=== PATIENT | female | born 1945 | race Caucasian/White ===

== ENCOUNTER 2017-10-05 08:59 | Outpatient (CLI) | payer OTHER | END 2017-10-05 09:11 | disposition home or self-care (01) | LOC: LAB 08:59 | DX: C50.412 Malignant neoplasm of upper-outer quadrant of left female breast (principal); D63.1 Anemia in chronic kidney disease; D53.8 Other specified nutritional anemias; D51.3 Other dietary vitamin B12 deficiency anemia; D63.8 Anemia in other chronic diseases classified elsewhere; D63.0 Anemia in neoplastic disease; D05.12 Intraductal carcinoma in situ of left breast; I10 Essential (primary) hypertension; E08.21 Diabetes mellitus due to underlying condition with diabetic nephropathy; E08.65 Diabetes mellitus due to underlying condition with hyperglycemia; E55.9 Vitamin D deficiency, unspecified; D50.8 Other iron deficiency anemias; D51.8 Other vitamin B12 deficiency anemias; R97.0 Elevated carcinoembryonic antigen [CEA]; R97.8 Other abnormal tumor markers; I73.89 Other specified peripheral vascular diseases ==

== ENCOUNTER 2017-10-27 12:31 | Outpatient (CLI) | payer OTHER | END 2017-10-27 12:37 | disposition home or self-care (01) | LOC: SONOGRAMA 12:31 | DX: N60.11 Diffuse cystic mastopathy of right breast (principal); N60.12 Diffuse cystic mastopathy of left breast; N63.41 Unspecified lump in right breast, subareolar ==

== ENCOUNTER 2018-03-15 10:12 | Outpatient (CLI) | payer OTHER | END 2018-03-15 10:14 | disposition home or self-care (01) | LOC: LAB 10:12 | DX: C50.412 Malignant neoplasm of upper-outer quadrant of left female breast (principal); D24.1 Benign neoplasm of right breast; D63.1 Anemia in chronic kidney disease; N18.3 Chronic kidney disease, stage 3 (moderate); D53.8 Other specified nutritional anemias; D51.3 Other dietary vitamin B12 deficiency anemia; D63.8 Anemia in other chronic diseases classified elsewhere; D63.0 Anemia in neoplastic disease; I10 Essential (primary) hypertension; E08.21 Diabetes mellitus due to underlying condition with diabetic nephropathy; I73.89 Other specified peripheral vascular diseases; E08.65 Diabetes mellitus due to underlying condition with hyperglycemia; E55.9 Vitamin D deficiency, unspecified; D50.8 Other iron deficiency anemias; D51.8 Other vitamin B12 deficiency anemias; R97.0 Elevated carcinoembryonic antigen [CEA]; R97.8 Other abnormal tumor markers ==

== ENCOUNTER 2018-08-23 06:36 | Outpatient (CLI) | payer OTHER | END 2018-08-23 06:40 | disposition home or self-care (01) | LOC: LAB 06:36 | DX: C50.412 Malignant neoplasm of upper-outer quadrant of left female breast (principal); D24.1 Benign neoplasm of right breast; D63.1 Anemia in chronic kidney disease; N18.3 Chronic kidney disease, stage 3 (moderate); D53.8 Other specified nutritional anemias; D51.3 Other dietary vitamin B12 deficiency anemia; D63.8 Anemia in other chronic diseases classified elsewhere; D63.0 Anemia in neoplastic disease; I10 Essential (primary) hypertension; E08.21 Diabetes mellitus due to underlying condition with diabetic nephropathy; I73.89 Other specified peripheral vascular diseases; E08.65 Diabetes mellitus due to underlying condition with hyperglycemia; E55.9 Vitamin D deficiency, unspecified; D50.8 Other iron deficiency anemias; D51.8 Other vitamin B12 deficiency anemias; R97.0 Elevated carcinoembryonic antigen [CEA]; R97.8 Other abnormal tumor markers ==

== ENCOUNTER 2018-12-26 09:33 | Outpatient (CLI) | payer OTHER | END 2018-12-26 09:40 | disposition home or self-care (01) | LOC: LAB 09:33 | DX: E03.8 Other specified hypothyroidism (principal); C50.412 Malignant neoplasm of upper-outer quadrant of left female breast; D24.1 Benign neoplasm of right breast; D63.1 Anemia in chronic kidney disease; N18.3 Chronic kidney disease, stage 3 (moderate); D53.8 Other specified nutritional anemias; D51.3 Other dietary vitamin B12 deficiency anemia; D63.8 Anemia in other chronic diseases classified elsewhere; D63.0 Anemia in neoplastic disease; I10 Essential (primary) hypertension; E08.21 Diabetes mellitus due to underlying condition with diabetic nephropathy; I73.89 Other specified peripheral vascular diseases; E08.65 Diabetes mellitus due to underlying condition with hyperglycemia; E55.9 Vitamin D deficiency, unspecified; D50.8 Other iron deficiency anemias; D51.8 Other vitamin B12 deficiency anemias; K90.89 Other intestinal malabsorption; R97.0 Elevated carcinoembryonic antigen [CEA]; R97.8 Other abnormal tumor markers ==

== ENCOUNTER → 2019-05-29 08:28 | Outpatient (CLI) | payer OTHER | END | disposition home or self-care (01) | LOC: LAB 08:28 | DX: D24.1 Benign neoplasm of right breast (principal); C50.412 Malignant neoplasm of upper-outer quadrant of left female breast; D63.1 Anemia in chronic kidney disease; N18.3 Chronic kidney disease, stage 3 (moderate); D53.8 Other specified nutritional anemias; D51.3 Other dietary vitamin B12 deficiency anemia; D63.8 Anemia in other chronic diseases classified elsewhere; D63.0 Anemia in neoplastic disease; E08.21 Diabetes mellitus due to underlying condition with diabetic nephropathy; I73.89 Other specified peripheral vascular diseases; E08.65 Diabetes mellitus due to underlying condition with hyperglycemia; E55.9 Vitamin D deficiency, unspecified; D50.8 Other iron deficiency anemias; D51.8 Other vitamin B12 deficiency anemias; R97.0 Elevated carcinoembryonic antigen [CEA]; R97.8 Other abnormal tumor markers; E03.8 Other specified hypothyroidism ==

== ENCOUNTER 2020-05-29 09:13 | Outpatient (CLI) | payer OTHER | END 2020-05-29 09:20 | disposition home or self-care (01) | LOC: LAB 09:13 | PROVIDERS: ATTEND Internal Medicine Hematology & Oncology | DX: D50.8 Other iron deficiency anemias (principal); I10 Essential (primary) hypertension; E78.2 Mixed hyperlipidemia; C50.412 Malignant neoplasm of upper-outer quadrant of left female breast; D24.1 Benign neoplasm of right breast; D63.1 Anemia in chronic kidney disease; D53.8 Other specified nutritional anemias; D51.3 Other dietary vitamin B12 deficiency anemia; D63.8 Anemia in other chronic diseases classified elsewhere; D63.0 Anemia in neoplastic disease; E08.21 Diabetes mellitus due to underlying condition with diabetic nephropathy; I73.89 Other specified peripheral vascular diseases; E08.65 Diabetes mellitus due to underlying condition with hyperglycemia; E55.9 Vitamin D deficiency, unspecified; D51.8 Other vitamin B12 deficiency anemias; R97.0 Elevated carcinoembryonic antigen [CEA]; R97.8 Other abnormal tumor markers ==

== ENCOUNTER 2020-10-30 07:33 | Outpatient (CLI) | payer OTHER | END 2020-10-30 07:39 | disposition home or self-care (01) | LOC: LAB 07:33 | PROVIDERS: ATTEND Internal Medicine Hematology & Oncology | DX: C50.412 Malignant neoplasm of upper-outer quadrant of left female breast (principal); D24.1 Benign neoplasm of right breast; D63.1 Anemia in chronic kidney disease; N18.31 Chronic kidney disease, stage 3a; D53.8 Other specified nutritional anemias; D51.3 Other dietary vitamin B12 deficiency anemia; D63.8 Anemia in other chronic diseases classified elsewhere; D63.0 Anemia in neoplastic disease; I10 Essential (primary) hypertension; E08.21 Diabetes mellitus due to underlying condition with diabetic nephropathy; I73.89 Other specified peripheral vascular diseases; E08.65 Diabetes mellitus due to underlying condition with hyperglycemia; E55.9 Vitamin D deficiency, unspecified; D50.8 Other iron deficiency anemias; R79.89 Other specified abnormal findings of blood chemistry; R74.02 Elevation of levels of lactic acid dehydrogenase [LDH]; K76.89 Other specified diseases of liver; D51.8 Other vitamin B12 deficiency anemias; R97.8 Other abnormal tumor markers; R97.0 Elevated carcinoembryonic antigen [CEA] ==

== ENCOUNTER → 2021-02-11 | Outpatient (CLI) | payer OTHER | END | disposition home or self-care (01) | LOC: LAB 08:32 | PROVIDERS: ATTEND Internal Medicine Hematology & Oncology | DX: C50.412 Malignant neoplasm of upper-outer quadrant of left female breast (principal); D24.1 Benign neoplasm of right breast; D63.1 Anemia in chronic kidney disease; D53.8 Other specified nutritional anemias; D51.3 Other dietary vitamin B12 deficiency anemia; D63.8 Anemia in other chronic diseases classified elsewhere; D63.0 Anemia in neoplastic disease; I10 Essential (primary) hypertension; E08.21 Diabetes mellitus due to underlying condition with diabetic nephropathy; I73.89 Other specified peripheral vascular diseases; E08.65 Diabetes mellitus due to underlying condition with hyperglycemia; E55.9 Vitamin D deficiency, unspecified ==

== ENCOUNTER 2021-05-14 08:37 | Outpatient (CLI) | payer OTHER | END 2021-05-14 08:41 | disposition home or self-care (01) | LOC: LAB 08:37 | PROVIDERS: ATTEND Internal Medicine Hematology & Oncology | DX: I10 Essential (primary) hypertension (principal); D50.8 Other iron deficiency anemias; R79.89 Other specified abnormal findings of blood chemistry; R74.02 Elevation of levels of lactic acid dehydrogenase [LDH]; K76.89 Other specified diseases of liver; D63.1 Anemia in chronic kidney disease; C50.919 Malignant neoplasm of unspecified site of unspecified female breast; R97.8 Other abnormal tumor markers; R97.0 Elevated carcinoembryonic antigen [CEA]; C50.412 Malignant neoplasm of upper-outer quadrant of left female breast; D24.1 Benign neoplasm of right breast; N18.9 Chronic kidney disease, unspecified; D53.8 Other specified nutritional anemias; D51.3 Other dietary vitamin B12 deficiency anemia; D63.8 Anemia in other chronic diseases classified elsewhere; E08.21 Diabetes mellitus due to underlying condition with diabetic nephropathy; I73.89 Other specified peripheral vascular diseases; E08.65 Diabetes mellitus due to underlying condition with hyperglycemia; E55.9 Vitamin D deficiency, unspecified ==

== ENCOUNTER 2021-09-10 08:33 | Outpatient (CLI) | payer OTHER | END 2021-09-10 08:41 | disposition home or self-care (01) | LOC: LAB 08:33 | PROVIDERS: ATTEND Internal Medicine Hematology & Oncology | DX: D50.8 Other iron deficiency anemias (principal); R79.9 Abnormal finding of blood chemistry, unspecified; R74.02 Elevation of levels of lactic acid dehydrogenase [LDH]; K76.89 Other specified diseases of liver; D63.1 Anemia in chronic kidney disease; C50.919 Malignant neoplasm of unspecified site of unspecified female breast; R97.8 Other abnormal tumor markers; R97.0 Elevated carcinoembryonic antigen [CEA]; C50.412 Malignant neoplasm of upper-outer quadrant of left female breast; D24.1 Benign neoplasm of right breast; D53.9 Nutritional anemia, unspecified; D51.3 Other dietary vitamin B12 deficiency anemia; D63.8 Anemia in other chronic diseases classified elsewhere; D63.0 Anemia in neoplastic disease; I73.9 Peripheral vascular disease, unspecified; E08.65 Diabetes mellitus due to underlying condition with hyperglycemia; E55.9 Vitamin D deficiency, unspecified; N18.30 Chronic kidney disease, stage 3 unspecified; E08.21 Diabetes mellitus due to underlying condition with diabetic nephropathy ==

== ENCOUNTER 2022-09-05 08:09 | Outpatient (CLI) | payer OTHER | END 2022-09-05 08:10 | disposition home or self-care (01) | LOC: LAB 08:09 | PROVIDERS: ATTEND Internal Medicine Hematology & Oncology | DX: D50.8 Other iron deficiency anemias (principal); R79.9 Abnormal finding of blood chemistry, unspecified; I10 Essential (primary) hypertension; R74.02 Elevation of levels of lactic acid dehydrogenase [LDH]; K76.89 Other specified diseases of liver; D51.8 Other vitamin B12 deficiency anemias; D63.1 Anemia in chronic kidney disease; C50.919 Malignant neoplasm of unspecified site of unspecified female breast; R97.8 Other abnormal tumor markers; C50.412 Malignant neoplasm of upper-outer quadrant of left female breast ==

== ENCOUNTER 2023-03-09 07:22 | Outpatient (CLI) | payer OTHER | END 2023-03-09 07:28 | disposition home or self-care (01) | LOC: LAB 07:22 | PROVIDERS: ATTEND Internal Medicine Hematology & Oncology | DX: D50.8 Other iron deficiency anemias (principal); R79.9 Abnormal finding of blood chemistry, unspecified; R74.02 Elevation of levels of lactic acid dehydrogenase [LDH]; K76.89 Other specified diseases of liver; D51.8 Other vitamin B12 deficiency anemias; E55.9 Vitamin D deficiency, unspecified; D63.1 Anemia in chronic kidney disease; C50.919 Malignant neoplasm of unspecified site of unspecified female breast; R97.8 Other abnormal tumor markers; R97.0 Elevated carcinoembryonic antigen [CEA]; C50.412 Malignant neoplasm of upper-outer quadrant of left female breast; D24.1 Benign neoplasm of right breast; N18.30 Chronic kidney disease, stage 3 unspecified; D51.3 Other dietary vitamin B12 deficiency anemia; D63.8 Anemia in other chronic diseases classified elsewhere; D63.0 Anemia in neoplastic disease; E08.21 Diabetes mellitus due to underlying condition with diabetic nephropathy; I73.9 Peripheral vascular disease, unspecified; E08.65 Diabetes mellitus due to underlying condition with hyperglycemia; K25.4 Chronic or unspecified gastric ulcer with hemorrhage; Z87.11 Personal history of peptic ulcer disease ==

== ENCOUNTER 2024-05-15 07:46 | Outpatient (CLI) | payer OTHER | END 2024-05-15 07:53 | disposition home or self-care (01) | LOC: MAMO-SONO 07:46 | PROVIDERS: ATTEND Internal Medicine Hematology & Oncology | DX: N63.0 Unspecified lump in unspecified breast (principal); N64.4 Mastodynia; C50.412 Malignant neoplasm of upper-outer quadrant of left female breast; D24.1 Benign neoplasm of right breast; D63.1 Anemia in chronic kidney disease; N18.30 Chronic kidney disease, stage 3 unspecified; D53.9 Nutritional anemia, unspecified; D51.3 Other dietary vitamin B12 deficiency anemia; D63.8 Anemia in other chronic diseases classified elsewhere; D63.0 Anemia in neoplastic disease; I10 Essential (primary) hypertension; E08.21 Diabetes mellitus due to underlying condition with diabetic nephropathy; I73.9 Peripheral vascular disease, unspecified; E08.65 Diabetes mellitus due to underlying condition with hyperglycemia; E55.9 Vitamin D deficiency, unspecified; K25.4 Chronic or unspecified gastric ulcer with hemorrhage; Z87.11 Personal history of peptic ulcer disease; Z12.31 Encounter for screening mammogram for malignant neoplasm of breast ==

== ENCOUNTER 2024-06-04 08:38 | Outpatient (CLI) | payer OTHER ==
[2024-06-04 09:20] LABS: HEMATOCRIT 33.5 % (36.0-45.00); HEMOGLOBIN 11.3 g/dL (12.0-15.00); MEAN CELL VOLUME 90.9 fL (80.00-100.00); MEAN CORPUSCULAR HEMOGLOBIN 30.6 pg (27.00-32.0); MEAN CORPUSCULAR HGB CONC 33.7 g/dl (32.0-36.0); PLATELET COUNT 230 K/uL (150-450); RED BLOOD COUNT 3.69 M/uL (4.00-6.00); RED CELL DISTRIBUTION WIDTH 15.2 % (11.5-14.5)
[2024-06-04 10:21] LABS: ALBUMIN 3.8 gm/dL (3.4-5.0); BILIRUBIN TOTAL 0.59 mg/dL (0.3-1.2); CALCIUM 9.9 mg/dL (8.5-10.1); CHOL HDL RATIO 3.4 (0-5.0); CREATININE SERUM 1.62 mg/dL (0.55-1.02); GFR 30.81; GLOBULINA 4.6 G/DL (2.4-3.5); POTASSIUM 5.02 mEq/L (3.5-5.1); T4 FREE 1.28 NG/ML (0.76-1.46); TOTAL PROTEIN 8.4 gm/dL (6.4-8.2); TSH 1.49 uIU/mL (0.358-3.74)
[2024-06-04 13:56] LABS: MANUAL PLATELET COUNT 314; PLATELET ESTIMATE NORMAL (NORMAL)
== END 2024-06-04 08:46 | disposition home or self-care (01) ==
LOC: LAB 08:38
PROVIDERS: ATTEND Internal Medicine Hematology & Oncology
DX: C50.412 Malignant neoplasm of upper-outer quadrant of left female breast (principal); D24.1 Benign neoplasm of right breast; D63.1 Anemia in chronic kidney disease; N18.30 Chronic kidney disease, stage 3 unspecified; D53.9 Nutritional anemia, unspecified; D51.3 Other dietary vitamin B12 deficiency anemia; D63.8 Anemia in other chronic diseases classified elsewhere; D63.0 Anemia in neoplastic disease; I10 Essential (primary) hypertension; E08.65 Diabetes mellitus due to underlying condition with hyperglycemia; I73.9 Peripheral vascular disease, unspecified; E55.9 Vitamin D deficiency, unspecified; K25.4 Chronic or unspecified gastric ulcer with hemorrhage; Z87.11 Personal history of peptic ulcer disease; Z12.11 Encounter for screening for malignant neoplasm of colon; R79.9 Abnormal finding of blood chemistry, unspecified; D50.8 Other iron deficiency anemias